=== PATIENT | female | born 1955 | race Caucasian/White ===

== ENCOUNTER → 2016-08-09 | Outpatient (CLI) | payer MEDICARE ==
[2016-08-09 13:30] LABS: Basophils # (A) 0.1 k/uL (0-0.2); Basophils % (A) 1 %; CH 28.8; CHCM 32.2; Eosinophils # (A) 0.5 k/uL (0-0.7); Eosinophils % (A) 6 %; HCT 40.9 % (34.0-46.0); HDW 2.38; HGB 12.9 gm/dL (11.4-16.0); Luc # (Auto) 0.18; Luc % (Auto) 2; Lymphocytes # (A) 2.9 k/uL (1.0-4.8); Lymphocytes % (A) 36 %; MCH 28.5 pg (25.0-35.0); MCHC 31.6 g/dL (31.0-37.0); Mean Platelet Volume 9.7; Monocytes # (A) 0.7 k/uL (0-1.0); Monocytes % (A) 9 %; Neutrophils # (A) 3.8 k/uL (1.3-7.7); Neutrophils % (A) 46 %; RBC 4.54 m/uL (3.80-5.40); RDW 13.4 % (11.5-15.5); WBC 8.1 k/uL (3.8-10.6); WBC (Perox) 8.49
[2016-08-09 13:36] LABS: ALT 71 U/L (9-52); AST 49 U/L (14-36); Alkaline Phosphatase 104 U/L (38-126); Anion Gap 12 mmol/L; Blood Urea Nitrogen 12 mg/dL (7-17); Calcium 9.7 mg/dL (8.4-10.2); Carbon Dioxide 27 mmol/L (22-30); Chloride 106 mmol/L (98-107); Glucose 104 mg/dL (74-99); Non-African American GFR(MDRD) 59 (>60 ml/min/1.73 sqM); Potassium 4.6 mmol/L (3.5-5.1); Sodium 145 mmol/L (137-145); Total Bilirubin 0.4 mg/dL (0.2-1.3); Total Protein 7.3 g/dL (6.3-8.2)
== END | disposition home or self-care (01) ==
LOC: LABWHC1 12:12
PROVIDERS: ATTEND Internal Medicine Gastroenterology
DX: K76.0 Fatty (change of) liver, not elsewhere classified (principal); E78.00 Pure hypercholesterolemia, unspecified
CPT/HCPCS: 36415; 80053; 85025

== ENCOUNTER → 2016-10-27 | Outpatient (CLI) | payer MEDICARE ==
--- NOTE | 2016-10-31 08:08 | MM ---
Reason for exam: screening (asymptomatic). Last mammogram was performed 1 year ago. History: Patient is postmenopausal. Family history of breast cancer in sister at age 42 and breast cancer in mother at age 70. Benign US RT VAD breast biopsy of the right breast, January 27, 2013. Benign right breast aspiration of the right breast, January 27, 2013. Benign excisional biopsy of the right breast, 1986. Took hormonal contraceptives for 7 years beginning at age 19. Physical Findings: A clinical breast exam by your physician is recommended on an annual basis and results should be correlated with mammographic findings. MG 3D Screening Mammo W/Cad Bilateral CC and MLO view(s) were taken. Prior study comparison: October 25, 2015, bilateral MG 3d screening mammo w/cad. October 22, 2014, bilateral MG screening mammo w CAD. August 05, 2012, bilateral digital screening mammo w/CAD. There are scattered fibroglandular densities. Previous mammotome biopsy within the right breast. There is chronic nodularity bilaterally, some nodules look fluctuated in size from older exams. No significant changes when compared with recent prior studies. ASSESSMENT: Benign, BI-RAD 2 RECOMMENDATION: Routine screening mammogram of both breasts in 1 year. LUPISD
== END | disposition home or self-care (01) ==
LOC: RADMAMWWP 08:28
PROVIDERS: ATTEND Internal Medicine
DX: Z12.31 Encounter for screening mammogram for malignant neoplasm of breast (principal)
CPT/HCPCS: 77063; G0202

== ENCOUNTER → 2017-02-08 | Outpatient (CLI) | payer MEDICARE ==
[2017-02-08 12:05] LABS: ALT 75 U/L (9-52); AST 49 U/L (14-36); Alkaline Phosphatase 115 U/L (38-126); Anion Gap 9 mmol/L; Blood Urea Nitrogen 12 mg/dL (7-17); Calcium 9.8 mg/dL (8.4-10.2); Carbon Dioxide 28 mmol/L (22-30); Chloride 109 mmol/L (98-107); Glucose 93 mg/dL (74-99); Non-African American GFR(MDRD) >60 (>60 ml/min/1.73 sqM); Potassium 4.9 mmol/L (3.5-5.1); Sodium 146 mmol/L (137-145); Total Bilirubin 0.4 mg/dL (0.2-1.3); Total Protein 7.3 g/dL (6.3-8.2)
== END | disposition home or self-care (01) ==
LOC: LABWHC1 11:20
PROVIDERS: ATTEND Internal Medicine Gastroenterology
DX: K76.0 Fatty (change of) liver, not elsewhere classified (principal)
CPT/HCPCS: 36415; 80053

== ENCOUNTER → 2017-09-03 | Outpatient (CLI) | payer MEDICARE ==
--- NOTE | 2017-09-03 14:56 | XR ---
EXAMINATION TYPE: XR shoulder complete RT DATE OF EXAM: 09/03/2017 COMPARISON: NONE HISTORY: 62 year-old female right shoulder pain after fall/injury last week TECHNIQUE: 3 views FINDINGS: Mild degenerative spurring at the AC joint. Subacromial space is preserved. No tendinous or bursal ca lcifications. No acute fracture, subluxation, or dislocation. IMPRESSION: Mild AC joint OA. No acute osseous abnormality seen.
== END ==
LOC: RADXRYALE 13:21
PROVIDERS: ATTEND Internal Medicine
DX: M19.011 Primary osteoarthritis, right shoulder (principal)

== ENCOUNTER → 2018-07-04 | Outpatient (CLI) | payer MEDICARE ==
--- NOTE | 2018-07-05 11:15 | MM ---
Reason for exam: screening (asymptomatic). Last mammogram was performed 1 year and 8 months ago. History: Patient is postmenopausal. Family history of breast cancer in sister at age 42 and breast cancer in mother at age 70. Benign US RT VAD breast biopsy of the right breast, January 27, 2013. Benign right breast aspiration of the right breast, January 27, 2013. Benign excisional biopsy of the right breast, 1986. Took hormonal contraceptives for 7 years beginning at age 19. Physical Findings: A clinical breast exam by your physician is recommended on an annual basis and results should be correlated with mammographic findings. MG 3D Screening Mammo W/Cad Bilateral CC, MLO, and XCCL view(s) were taken. Prior study comparison: October 27, 2016, bilateral MG 3d screening mammo w/cad. October 25, 2015, bilateral MG 3d screening mammo w/cad. There are scattered fibroglandular densities. There is no discrete abnormality. No significant changes when compared with prior studies. ASSESSMENT: Negative, BI-RAD 1 RECOMMENDATION: Routine screening mammogram of both breasts in 1 year.
== END | disposition home or self-care (01) ==
LOC: RADMAMWWP 10:56
PROVIDERS: ATTEND Internal Medicine
DX: Z12.31 Encounter for screening mammogram for malignant neoplasm of breast (principal)
CPT/HCPCS: 77063; 77067

== ENCOUNTER → 2019-05-27 | Outpatient (CLI) | payer MEDICARE ==
--- NOTE | 2019-05-27 16:32 | MR ---
EXAMINATION TYPE: MR brain wo/w con DATE OF EXAM: 05/27/2019 COMPARISON: None HISTORY: Anosmia CONTRAST: Performed utilizing 10 mL intravenous Gadavist gadolinium contrast. TECHNIQUE: Multiplanar, multiecho imaging on a 3.0 Cande magnet is performed through the brain. Stud y is performed within 24 hours of arrival to the hospital. The craniovertebral junction is normal. The pituitary is normal. Diffusion-weighted imaging is performed. No abnormal hyperintensity is present to suggest an acute i ntracranial infarct or acute ischemic change. No abnormal signals along the cribriform plate. Inferior frontal lobes appear normal. There is some scattered periventricular white matter changes, likely on the basis of minimal perivent ricular white matter changes. Virchow-Brett's spaces are within the bilateral basal ganglion. Old lac unar infarcts are considered less likely. No suspicious enhancement is evident. Ventricles and sulci are appropriate for the patient age. IMPRESSIONS: 1. No suspicious abnormality to account for anosmia. 2. Mild periventricular white matter ischemic changes.
== END ==
LOC: RADMRIMAIN 09:37
PROVIDERS: ATTEND Otolaryngology
DX: I67.82 Cerebral ischemia (principal)
CPT/HCPCS: 70553; A9585

== ENCOUNTER → 2019-05-28 | Outpatient (CLI) | payer MEDICARE ==
--- NOTE | 2019-05-28 11:36 | EST ---
EXERCISE STRESS AGE: 63 SEX: F HT: 66 WT: 220 PROTOCOL: Agus Stress Test STAGE: 2 DURATION OF EXERCISE: 6:00 HEART RATE REST: 76 BLOOD PRESSURE REST: 150/78 MAXIMUM HEART RATE ACHIEVED: 140 MAXIMUM BLOOD PRESSURE: 214/73 85% MPHR: 132 100% MPHR: 155 METS: 7.3 INDICATIONS: Chest pain. CLINICAL INFORMATION: Baseline heart rate baseline heart rate 76 beats per minute. Baseline blood pressure 150/78 mmHg. Baseline 12-lead ECG shows normal sinus rhythm with normal cardiac intervals. Patient exercised on a Agus protocol for 6 minutes achieving a peak heart rate of 140 beats per minute. There was a hypertensive response to exercise 214/73 mmHg. Patient was short of breath at peak exercise. There was no ECG evidence for ischemia. No exercise-induced arrhythmias were noted at recovery. No arrhythmias noted. IMPRESSION: 1. Average exercise capacity. 2. Patient short of breath at peak exercise. 3. Hypertensive response to exercise. MMODL / IJN: [id number] /
--- NOTE | 2019-05-29 11:54 | ECHOF ---
Referral Reason:R07.89 Chest pressure MEASUREMENTS -------- HEIGHT: 170.2 cm WEIGHT: 99.8 kg BP: IVSd: 1.3 cm (0.6 - 1.1) LVIDd: 4.2 cm (3.9 - 5.3) LVPWd: 1.3 cm (0.6 - 1.1) IVSs: 1.4 cm LVIDs: 3.3 cm LVPWs: 1.5 cm LA Diam: 3.8 cm (2.7 - 3.8) LAESV Index (A-L): 20.28 ml/m Ao Diam: 3.1 cm (2.0 - 3.7) LA Diam: 3.8 cm (2.7 - 3.8) AV Cusp: 1.9 cm (1.5 - 2.6) EPSS: 0.5 cm MV E Aman: 0.50 m/s MV DecT: 227 ms MV A Aman: 0.67 m/s MV E/A Ratio: 0.75 RAP: 5.00 mmHg RVSP: 10.49 mmHg MV EF SLOPE: 77.74 mm/s (70 - 150) MV EXCURSION: 15.27 mm (> 18.000) TAPSE: 17.96 mm FINDINGS -------- Sinus rhythm. This was a technically adequate study. There is mild concentric left ventricular hypertrophy. Overall left ventricular systolic function i s normal with, an EF between 55 - 60 %. The right ventricle is normal in size. The left atrial size is normal. Normal LA size by volume 22+/-6 ml/m2. The right atrial size is normal. The aortic valve is trileaflet, and appears structurally normal. No aortic stenosis or regurgitation. There is trace mitral regurgitation. Mild tricuspid regurgitation present. Right ventricular systolic pressure is normal at < 35 mmHg. There is no evidence of pulmonary hypertension. There is no pulmonic regurgitation present. The aortic root size is normal. Echo free space represents a pericardial fat pad. CONCLUSIONS -------- 1. Sinus rhythm. 2. This was a technically adequate study. 3. There is mild concentric left ventricular hypertrophy. 4. Overall left ventricular systolic function is normal with, an EF between 55 - 60 %. 5. The right ventricle is normal in size. 6. The left atrial size is normal. 7. Normal LA size by volume 22+/-6 ml/m2. 8. The right atrial size is normal. 9. The aortic valve is trileaflet, and appears structurally normal. No aortic stenosis or regurgitati on. 10. There is trace mitral regurgitation. 11. Mild tricuspid regurgitation present. 12. Right ventricular systolic pressure is normal at < 35 mmHg. 13. There is no evidence of pulmonary hypertension. 14. There is no pulmonic regurgitation present. 15. The aortic root size is normal. 16. Echo free space represents a pericardial fat pad. CARDIOPULMONARY SPECIALIST: Swapan Corbett RDCS
== END | disposition home or self-care (01) ==
LOC: RADNMMAIN 10:33
PROVIDERS: ATTEND Internal Medicine
DX: I07.1 Rheumatic tricuspid insufficiency (principal); I10 Essential (primary) hypertension
CPT/HCPCS: 93017; 93306

== ENCOUNTER → 2019-07-04 | Outpatient (CLI) | payer MEDICARE ==
--- NOTE | 2019-07-07 10:38 | MM ---
Reason for exam: screening (asymptomatic). Last mammogram was performed 1 year ago. History: Patient is postmenopausal. Family history of breast cancer in sister at age 42 and breast cancer in mother at age 70. Benign US RT VAD breast biopsy of the right breast, January 27, 2013. Benign right breast aspiration of the right breast, January 27, 2013. Benign excisional biopsy of the right breast, 1986. Took hormonal contraceptives for 7 years beginning at age 19. Physical Findings: A clinical breast exam by your physician is recommended on an annual basis and results should be correlated with mammographic findings. MG Screening Mammo w CAD Bilateral CC and MLO view(s) were taken. Prior study comparison: July 04, 2018, bilateral MG 3d screening mammo w/cad. October 27, 2016, bilateral MG 3d screening mammo w/cad. There are scattered fibroglandular densities. There is no discrete abnormality. No significant changes when compared with prior studies. ASSESSMENT: Negative, BI-RAD 1 RECOMMENDATION: Routine screening mammogram of both breasts in 1 year.
== END | disposition home or self-care (01) ==
LOC: RADMAMWWP 09:07
PROVIDERS: ATTEND Internal Medicine
DX: Z12.31 Encounter for screening mammogram for malignant neoplasm of breast (principal)
CPT/HCPCS: 77067

== ENCOUNTER → 2020-07-29 | Outpatient (CLI) | payer MEDICARE ==
--- NOTE | 2020-07-30 14:36 | MM ---
Reason for exam: screening (asymptomatic). Last mammogram was performed 1 year and 1 month ago. History: Patient is postmenopausal. Family history of breast cancer in sister at age 42 and breast cancer in mother at age 70. Benign US RT VAD breast biopsy of the right breast, January 27, 2013. Benign right breast aspiration of the right breast, January 27, 2013. Benign excisional biopsy of the right breast, 1986. Took hormonal contraceptives for 7 years beginning at age 19. Physical Findings: A clinical breast exam by your physician is recommended on an annual basis and results should be correlated with mammographic findings. MG 3D Screening Mammo W/Cad Bilateral CC and MLO view(s) were taken. XCCL view(s) were taken of the right breast. Prior study comparison: July 04, 2019, bilateral MG screening mammo w CAD. July 04, 2018, bilateral MG 3d screening mammo w/cad. There are scattered fibroglandular densities. There are benign appearing round calcifications bilaterally. Previous mammotome biopsy in the right breast. There is chronic nodularity in the left breast. There is no discrete abnormality. ASSESSMENT: Benign, BI-RAD 2 RECOMMENDATION: Routine screening mammogram of both breasts in 1 year.
== END | disposition home or self-care (01) ==
LOC: RADMAMWWP 14:13
PROVIDERS: ATTEND Internal Medicine
DX: Z12.31 Encounter for screening mammogram for malignant neoplasm of breast (principal)
CPT/HCPCS: 77063; 77067

== ENCOUNTER → 2021-09-27 | Outpatient (CLI) | payer MEDICARE ==
--- NOTE | 2021-09-28 12:44 | MM ---
Reason for exam: screening (asymptomatic). Last mammogram was performed 1 year and 2 months ago. History: Patient is postmenopausal. Family history of breast cancer in sister at age 42 and breast cancer in mother at age 70. Benign US RT VAD breast biopsy of the right breast, January 27, 2013. Benign right breast aspiration of the right breast, January 27, 2013. Benign excisional biopsy of the right breast, 1986. Took hormonal contraceptives for 7 years beginning at age 19. Physical Findings: A clinical breast exam by your physician is recommended on an annual basis and results should be correlated with mammographic findings. MG 3D Screening Mammo W/Cad Bilateral CC, MLO, and XCCL view(s) were taken. Prior study comparison: July 29, 2020, bilateral MG 3d screening mammo w/cad. July 04, 2019, bilateral MG screening mammo w CAD. There are scattered fibroglandular densities. There is chronic nodularity in the left breast. No significant changes when compared with prior studies. ASSESSMENT: Benign, BI-RAD 2 RECOMMENDATION: Routine screening mammogram of both breasts in 1 year.
== END | disposition home or self-care (01) ==
LOC: RADMAMWWP 09:35
PROVIDERS: ATTEND Internal Medicine
DX: Z12.31 Encounter for screening mammogram for malignant neoplasm of breast (principal); Z78.0 Asymptomatic menopausal state; Z80.3 Family history of malignant neoplasm of breast
CPT/HCPCS: 77063; 77067

== ENCOUNTER → 2022-09-28 | Outpatient (CLI) | payer MEDICARE ==
--- NOTE | 2022-09-28 08:30 | MM ---
Reason for Exam: Screening (asymptomatic). Last screening mammogram was performed 12 month(s) ago. Patient History: Menarche at age 12. First Full-Term at age 19. Postmenopausal. Hormonal Contraceptives for 7 years from age 19 until age 26. 1986, Benign Excisional Biopsy on the right side. 01/27/2013, Benign Cyst Aspiration on the right side. 01/27/2013, Benign Core Biopsy on the right side. Sister had breast cancer, age 42. Mother had breast cancer, age 70. Risk Values: Radha 5 year model risk: 9.4%. NCI Lifetime model risk: 26.1%. Prior Study Comparison: 07/04/2019 Bilateral Screening Mammogram, [facility]. 07/29/2020 Bilateral Screening Mammogram, [facility]. 09/27/2021 Bilateral Screening Mammogram, [facility]. Tissue Density: The breast tissue is heterogeneously dense. This may lower the sensitivity of mammography. Findings: Analyzed By CAD. Right breast biopsy clip. There is no suspicious group of microcalcifications or new suspicious mass in either breast. Overall Assessment: Negative, BI-RAD 1 Management: Screening Mammogram of both breasts in 1 year. A clinical breast exam by your physician is recommended on an annual basis and results should be correlated with mammographic findings. [facility] will attempt to contact patient to return for supplemental views and ultrasound if indicated. Electronically signed and approved by: Flaco Walden DO
--- NOTE | 2022-09-28 14:27 | BD ---
EXAMINATION TYPE: Axial Bone Density DATE OF EXAM: 09/28/2022 CLINICAL HISTORY: 67 years old Female. ICD-10 CODE: Z78.0 N95.1MENOPAUSAL AND FEMALE CLIMACTER Height: 63 Weight: 206.6 FRAX RISK QUESTIONS: Alcohol (3 or more units per day): no Family History (Parent hip fracture): no Glucocorticoids (More than 3mos): no History of Fracture in Adulthood: no Secondary Osteoporosis: 1. Type 1 Diabetes: no 2. Hyperthyroidism: no 3. Menopause before 45: no 4. Malnutrition: no 5. Chronic liver disease: no Rheumatoid Arthritis: no Current Tobacco Use: no RISK FACTORS HISTORY OF: Hip Fracture (Right/Left): no Spine Fracture: no History of Wrist Fracture: no Surgery to Spine/Hip(right/left)/Wrist (right/left): no Family History of Osteoporosis: no Active: yes Diet low in dairy products/other sources of calcium: yes Postmenopausal woman: yes Take estrogen and/or progesterone medications: no Lost more than 2 inches in height since high school: yes Frequent falls: no Poor Health: no Hyperparathyroidism: no Adrenal Insufficiency: no MEDICATIONS: Prednisone or other steroids: no Thyroid Medications: yes Which medication: levothyroxine How Long: past 6 years Osteoporosis Medications: no Additional Medications: atorvastatin, Metrogel, atenolol, omeprazole,vit. d Additional History: EXAM MEASUREMENTS: Bone mineral densitometry was performed using the [employer]. Bone mineral density as measured about the Lumbar spine is: ----- L1-L4(G/cm2): 1.497 T Score Values are as follows: ----- L1: 1.3 ----- L2: 1.6 ----- L3: 2.9 ----- L4: 3.9 ----- L1-L4: 2.6 Z Score Values are as follows: ----- L1: 2.0 ----- L2: 2.3 ----- L3: 3.6 ----- L4: 4.6 ----- L1-L4: 3.3 Bone mineral density has: Increased 13.5 % since study of: 01/25/2012 Bone mineral density about the R hip (g/cm2): 1.170 Bone mineral density about the L hip (g/cm2): 1.213 T Score values are as follows: -----R Neck: -0.3 -----L Neck: 0.6 -----R Total: 1.3 -----L Total: 1.6 Z Score values are as follows: -----R Neck: 0.7 -----L Neck: 1.6 -----R Total: 2.0 -----L Total: 2.4 Bone mineral density has: Increased 1.1% since study of: 01/25/2012 FRAX%s: The graph provided illustrates a 6.8% chance for a major osteoporotic fx and a 0.4% chance fo r the hips probability for fx in 10 years time. IMPRESSION: Normal (Values between +1 and -1 indicate normal bone mass). Consider repeating this study in 5 year s or sooner if there is some new clinical indication. NOTE: T-SCORE=SD OF THE YOUNG ADULT MEAN.
== END | disposition home or self-care (01) ==
LOC: RADMAMWWP 08:01
PROVIDERS: ATTEND Obstetrics & Gynecology
DX: Z12.31 Encounter for screening mammogram for malignant neoplasm of breast (principal); N95.1 Menopausal and female climacteric states; Z80.3 Family history of malignant neoplasm of breast
CPT/HCPCS: 77063; 77067; 77080

== ENCOUNTER → 2023-05-08 | Outpatient (CLI) | payer MEDICARE ==
--- NOTE | 2023-05-08 12:07 | XR ---
EXAMINATION TYPE: XR lumbosacral spine min 4V DATE OF EXAM: 05/08/2023 CLINICAL HISTORY: pain COMPARISON: NONE TECHNIQUE: Frontal, lateral, and oblique images of the lumbar spine are obtained. FINDINGS: There are 5 lumbar type vertebral bodies identified. The lumbar spine shows satisfactory alignment without evidence of acute fracture or dislocation. Vertebral body heights are within normal limits. There is vacuum disc noted at L1-2, L3-4 and L4-5. There is grade 1 anterolisthesis L4 and L 5 measuring 5 mm. Severe degenerative change of the facet joints. The overlying soft tissue appears unremarkable. IMPRESSION: No acute fracture or dislocation is seen in the lumbar spine.ICD 10 NO FRACTURE, INITIAL EVALUATION
== END | disposition home or self-care (01) ==
LOC: RADXRYALE 11:38
PROVIDERS: ATTEND Internal Medicine
DX: M54.31 Sciatica, right side (principal)
CPT/HCPCS: 72110

== ENCOUNTER → 2023-06-12 | Outpatient (CLI) | payer MEDICARE ==
--- NOTE | 2023-06-13 14:05 | MR ---
EXAMINATION TYPE: MR lumbar spine wo con DATE OF EXAM: 06/12/2023 7:11 PM CLINICAL INDICATION:Female, 67 years old with history of M54.31 [id number]; PHH, Right hip pain into Rt gr oin, knee, leg COMPARISON: 05/08/2023 TECHNIQUE: Multi planar, multi sequence imaging was performed utilizing: T1-weighted, T2-weighted, a nd turbo inversion recovery imaging of the lumbar spine. IV Contrast: . (None if empty) FINDINGS: Alignment: The lumbar vertebral bodies have preserved heights with grade 1 anterolisthesis of L4 on L 5. Cord: The conus medullaris and the distal spinal cord appear unremarkable with regards to their signa l intensity and morphology. Bones/Discs: Mild degeneration changes throughout the spine with osteophyte formation and facet joint arthropathy. Intervertebral disc signal is maintained. T12-L1: No evidence of significant spinal canal stenosis or neural foraminal stenosis. L1-L2: No evidence of significant spinal canal stenosis or neural foraminal stenosis. L2-L3: Disc bulge and facet joint arthropathy result in mild to moderate spinal canal and mild bilate ral neural foraminal stenosis. L3-L4: Right foraminal disc protrusion abutting the right exiting nerve. Additionally there is a disc bulge and facet joint arthropathy result in moderate spinal canal and moderate left neural foraminal stenosis. L4-L5: Disc uncovering from grade 1 anterolisthesis and facet joint arthropathy with moderate spinal canal stenosis and moderate to severe left and moderate right bilateral neural foraminal stenosis. L5-S1: The disc is rounded posterior morphology without significant spinal canal stenosis. Facet join t arthropathy with mild to moderate bilateral neural foraminal stenosis. T10 and T11 posterior osteophyte which impresses upon the spinal cord. Other findings: None. IMPRESSION: 1. L3-L4 right foraminal disc protrusion abutting the exiting right nerve with moderate spinal canal and moderate to severe right neural foraminal stenosis. 2. Moderate to severe disc degeneration with associated osteoarthritic changes. 3. Grade 1 anterolisthesis of L4 and L5.
== END | disposition home or self-care (01) ==
LOC: RADMRIMAIN 17:59
PROVIDERS: ATTEND Internal Medicine
DX: M51.16 Intervertebral disc disorders with radiculopathy, lumbar region (principal); M99.73 Connective tissue and disc stenosis of intervertebral foramina of lumbar region; M47.26 Other spondylosis with radiculopathy, lumbar region; M43.16 Spondylolisthesis, lumbar region
CPT/HCPCS: 72148

== ENCOUNTER 2023-06-19 12:19 | Day surgery (SDC) | payer MEDICARE ==
[2023-06-15 15:49] VITALS: BMI 34.9
[~2023-06-19 12:19] MED LIST: LACTATED RINGERS 1,000 ML IV SCH
[2023-06-19 13:00] LABS: Glucose,Whole Blood 117 mg/dL (70-110)
[2023-06-19 13:04] VITALS: TEMP 97.6
[2023-06-19] MEDS ORDERED: LIDOCAINE 1% INJ 10MG/ML (20 ML MDV) ONE (13:15)
[2023-06-19] MEDS ORDERED: PROPOFOL 10 MG/ML 20 ML VIAL IV ONE (13:15)
--- NOTE | 2023-06-19 13:16 | P.GSHP ---
History of Present Illness H&P Date: 06/19/23 Chief Complaint: Colon cancer screening 67-year-old female here for colonoscopy. Last colonoscopy 7-10 years ago she thinks. She believes that was normal. Family history of colon cancer in her mother. No bowel complaints. Past Medical History Past Medical History: Diabetes Mellitus, GERD/Reflux, Hyperlipidemia, Hypertension, Thyroid Disorder History of Any Multi-Drug Resistant Organisms: None Reported Past Surgical History: No Surgical Hx Reported Past Anesthesia/Blood Transfusion Reactions: No Reported Reaction Additional Past Anesthesia/Blood Transfusion Reaction / Comment(s): no blood transfusion Smoking Status: Never smoker Medications and Allergies Home Medications Medication Instructions Recorded Confirmed Type Atorvastatin [Lipitor] 40 mg PO DAILY 06/15/23 06/19/23 History DULoxetine HCL [Cymbalta] 1 tab PO DAILY 06/15/23 06/19/23 History Empagliflozin [Jardiance] 1 tab PO DAILY 06/15/23 06/19/23 History Levothyroxine Sodium [Synthroid] 50 mcg PO DAILY 06/15/23 06/19/23 History Omeprazole 40 mg PO DAILY 06/15/23 06/19/23 History atenoloL [Tenormin] 50 mg PO DAILY 06/15/23 06/19/23 History lisinopriL [Zestril] 5 mg PO DAILY 06/15/23 06/19/23 History Allergies Allergy/AdvReac Type Severity Reaction Status Date / Time peanut Allergy Hallucinati Verified 06/19/23 12:42 ons sulfamethoxazole AdvReac Rash/Hives Verified 06/19/23 12:42 [From Bactrim] trimethoprim [From Bactrim] AdvReac Rash/Hives Verified 06/19/23 12:42 Surgical - Exam Vital Signs Temp Pulse Resp BP Pulse Ox 97.6 F 101 H 14 171/83 97 06/19/23 12:48 06/19/23 12:48 06/19/23 12:48 06/19/23 12:48 06/19/23 12:48 Physical exam: General: Well-developed, well-nourished HEENT: Normocephalic, sclerae nonicteric Abdomen: Nontender, nondistended Extremities: No edema Neuro: Alert and oriented Results - Labs Abnormal Lab Results - Last 24 Hours (Table) 06/19/23 Range/Units 12:57 POC Glucose (mg/dL) 117 H (70-110) mg/dL Assessment and Plan (1) Colon cancer screening Narrative/Plan: Will proceed with colonoscopy at this time. Current Visit: Yes Status: Acute Code(s): Z12.11 - ENCOUNTER FOR SCREENING FOR MALIGNANT NEOPLASM OF COLON SNOMED Code(s): 350175273
--- NOTE | 2023-06-19 13:33 | P.PCN ---
Date of Procedure: 06/19/23 Procedure(s) Performed: PREOPERATIVE DIAGNOSIS: Screening with family history of colon cancer POSTOPERATIVE DIAGNOSIS: Diverticulosis, poor prep PROCEDURE: Colonoscopy ANESTHESIA: MAC SURGEON: Brandon Franco M.D. SPECIMENS: None ENDOSCOPIC PROCEDURE: The patient was placed on the endoscopy table in the left decubitus position. The Olympus colonoscope was inserted into the anus and passed under direct visualization to the base of the cecum. The appendiceal orifice was visualized. From that point the scope was slowly withdrawn inspecting all surfaces carefully. There were no neoplastic inflammatory or polypoid lesions throughout the cecum, ascending, transverse, descending, sigmoid and rectum. There was mild scattered diverticulosis noted. The patient had retained liquid stool throughout the colon limiting the visualization somewhat. Digital rectal examination was normal. The patient was taken to the recovery room in stable condition per anesthesia guidelines. RECOMMENDATIONS: Resume diet. Tentatively plan follow-up colonoscopy 5 years given the patient's family history.
[2023-06-19 14:16] VITALS: BP 145/74; PULSE 91; RESP 16
== END 2023-06-19 14:22 | disposition home or self-care (01) ==
LOC: ORWHC2ENDO 12:19
PROVIDERS: ATTEND Surgery
DX: Z12.11 Encounter for screening for malignant neoplasm of colon (principal); K57.30 Diverticulosis of large intestine without perforation or abscess without bleeding; E11.9 Type 2 diabetes mellitus without complications; K21.9 Gastro-esophageal reflux disease without esophagitis; E78.5 Hyperlipidemia, unspecified; I10 Essential (primary) hypertension; E07.9 Disorder of thyroid, unspecified; Z80.0 Family history of malignant neoplasm of digestive organs; Z79.890 Hormone replacement therapy; Z79.84 Long term (current) use of oral hypoglycemic drugs; Z79.899 Other long term (current) drug therapy; Z91.010 Allergy to peanuts; Z88.2 Allergy status to sulfonamides; Z88.1 Allergy status to other antibiotic agents
CPT/HCPCS: 45378; J2001; J2704

== ENCOUNTER → 2023-11-16 | Outpatient (CLI) | payer MEDICARE ==
--- NOTE | 2023-11-19 08:25 | MM ---
Reason for Exam: Screening (asymptomatic). Last mammogram was performed 1 year(s) and 2 month(s) ago. Patient History: Menarche at age 12. First Full-Term at age 19. Postmenopausal. Hormonal Contraceptives for 7 years from age 19 until age 26. 1986, Benign Excisional Biopsy on the right side. 01/27/2013, Benign Cyst Aspiration on the right side. 01/27/2013, Benign Core Biopsy on the right side. Sister had breast cancer, age 42. Mother had breast cancer, age 70. Risk Values: Radha 5 year model risk: 9.4%. NCI Lifetime model risk: 25.1%. Prior Study Comparison: 07/29/2020 Bilateral Screening Mammogram, [facility]. 09/27/2021 Bilateral Screening Mammogram, [facility]. 09/28/2022 Bilateral MG 3D screening mammo w/cad, [facility]. Tissue Density: The breasts are heterogeneously dense, which may obscure small masses. Findings: Analyzed By CAD. There is no suspicious group of microcalcifications or new suspicious mass in either breast. Stable bilateral chronic nodularity and benign calcifications. Surgical biopsy clip right breast. Overall Assessment: Benign, BI-RAD 2 Management: Screening Mammogram of both breasts in 1 year. . Patient should continue monthly self-breast exams. A clinical breast exam by your physician is recommended on an annual basis. This exam should not preclude additional follow-up of suspicious palpable abnormalities. Note on Radha scores and lifetime risk: 1. A Radha score greater than 3% is considered moderate risk. If this is the case, consider specialist referral to assess eligibility for a risk reducing agent. 2. If overall lifetime risk for the development of breast cancer is 20% or higher, the patient may qualify for future screening with alternating mammogram and breast MRI. Electronically signed and approved by: Adrián Olguin M.D. Radiologis
== END | disposition home or self-care (01) ==
LOC: RADMAMWWP 12:23
PROVIDERS: ATTEND Internal Medicine
DX: Z12.31 Encounter for screening mammogram for malignant neoplasm of breast (principal); Z78.0 Asymptomatic menopausal state; Z80.3 Family history of malignant neoplasm of breast
CPT/HCPCS: 77063; 77067

== ENCOUNTER → 2024-11-18 | Outpatient (CLI) | payer MEDICARE ==
--- NOTE | 2024-11-18 11:02 | MM ---
Reason for Exam: Screening (asymptomatic). Last screening mammogram was performed 12 month(s) ago. Patient History: Menarche at age 12. First Full-Term at age 19. Postmenopausal. Hormonal Contraceptives for 7 years from age 19 until age 26. 1986, Benign Excisional Biopsy on the right side. 01/27/2013, Benign Cyst Aspiration on the right side. 01/27/2013, Benign Core Biopsy on the right side. Sister had breast cancer, age 42. Mother had breast cancer, age 70. Risk Values: Radha 5 year model risk: 9.5%. NCI Lifetime model risk: 24.1%. Prior Study Comparison: 09/27/2021 Bilateral Screening Mammogram, [facility]. 09/28/2022 Bilateral MG 3D screening mammo w/cad, [facility]. 11/16/2023 Bilateral MG 3D screening mammo w/cad, [facility]. Tissue Density: The breasts are almost entirely fatty. Findings: Analyzed By CAD. Right breast: There is no suspicious group of microcalcifications or new suspicious mass. Left breast: There is no suspicious group of microcalcifications or new suspicious mass. Overall Assessment: Negative, BI-RAD 1 Management: Screening Mammogram of both breasts in [address] [facility] will attempt to contact patient to return for supplemental views and ultrasound if indicated. Patient should continue monthly self-breast exams. A clinical breast exam by your physician is recommended on an annual basis. This exam should not preclude additional follow-up of suspicious palpable abnormalities. Note on Radha scores and lifetime risk: 1. A Radha score greater than 3% is considered moderate risk. If this is the case, consider specialist referral to assess eligibility for a risk reducing agent. 2. If overall lifetime risk for the development of breast cancer is 20% or higher, the patient may qualify for future screening with alternating mammogram and breast MRI. [facility], , 11/18/2024 10:59 AM. Electronically signed and approved by: Flaco Walden DO
== END | disposition home or self-care (01) ==
LOC: RADMAMWWP 10:39
PROVIDERS: ATTEND Internal Medicine
DX: Z12.31 Encounter for screening mammogram for malignant neoplasm of breast (principal); R92.313 Mammographic fatty tissue density, bilateral breasts; Z78.0 Asymptomatic menopausal state; Z80.3 Family history of malignant neoplasm of breast; Z92.0 Personal history of contraception
CPT/HCPCS: 77063; 77067